=== PATIENT | male | born 2000 | race Caucasian/White ===

== ENCOUNTER 2024-02-14 14:11 | Emergency (ER) | payer OTHER ==
[2024-02-14 14:30] VITALS: BP 128/63; PULSE 93; RESP 18; TEMP 98.6; BMI 23.7
[2024-02-14] MEDS ORDERED: IBUPROFEN 600 MG TABLET (FP) PO ONE (15:42)
[2024-02-14] MEDS: IBUPROFEN 600 MG TABLET (FP) PO ONE (15:49)
== END 2024-02-14 16:52 | disposition home or self-care (01) ==
LOC: JERFT 14:11 → JER 14:11 → JERFT 16:52
DX: S96.912A Strain of unspecified muscle and tendon at ankle and foot level, left foot, initial encounter (principal); S93.402A Sprain of unspecified ligament of left ankle, initial encounter; M54.50 Low back pain, unspecified; X50.1XXA Overexertion from prolonged static or awkward postures, initial encounter
CPT/HCPCS: 73610-TC-LT-FY; 99284-25